=== PATIENT | female | born 1935 | race Caucasian/White ===

== ENCOUNTER → 2016-09-12 | Outpatient (REF) ==
[~2016-09-12] MED LIST: /CLON1TA OR; /WARF25TA OR; ACET65TA OR; ALPR0.5T3 PO; ASPI325T PO; BIMA01SOL OD; COMB0.2S OU; DYAZ37.5 OR; IBUP400T OR; ISTALOL OD; K-TA10TA OR; KLOR1TAB69 PO; LIPI20TA PO; LUMIGAN OD; OMEP10CASR PO; POTA10CA32 PO; POTTASIUM PO; PRIL20CA OR; TRAM50TA2 OR; TRIA37.53 PO; VERA240C PO; VERAPAMIL ER PO; XANA0.25 OR
[2016-09-12 10:15] LABS: CALCIUM LEVEL 8.2 MG/DL (8.8-10.2); CREATININE FOR GFR 1.41 MG/DL (0.55-1.02); GLOMERULAR FILTRATION RATE 38.2 (>32); POTASSIUM SERUM 3.4 MEQ/L (3.5-5.1)
[2016-09-12 10:23] LABS: MEAN CORPUSCULAR HEMOGLOBIN 31.4 pg (27.0-33.0); MEAN CORPUSCULAR HGB CONC 30.8 g/dl (32.0-36.5); RED CELL DISTRIBUTION WIDTH 23.1 % (11.5-14.5); WHITE BLOOD COUNT 8.3 K/mm3 (4.0-10.0)
[2016-09-12 12:10] LABS: INR 1.47
== END ==
LOC: SKLAB3 08:00
PROVIDERS: ATTEND Internal Medicine
DX: N18.9 Chronic kidney disease, unspecified (principal); I10 Essential (primary) hypertension

== ENCOUNTER → 2016-09-15 | Outpatient (REF) ==
[2016-09-15 10:23] LABS: MEAN CORPUSCULAR HEMOGLOBIN 32.3 pg (27.0-33.0); MEAN CORPUSCULAR VOLUME 104.4 fl (80.0-96.0); RED CELL DISTRIBUTION WIDTH 21.6 % (11.5-14.5); WHITE BLOOD COUNT 7.8 K/mm3 (4.0-10.0)
[2016-09-15 10:25] LABS: INR 2.12
[2016-09-15 10:35] LABS: ALBUMIN 2.6 GM/DL (3.2-5.2); ANION GAP 13 MEQ/L (8-16); BLOOD UREA NITROGEN 27 MG/DL (7-18); CALCIUM LEVEL 7.8 MG/DL (8.8-10.2); CARBON DIOXIDE LEVEL 24 MEQ/L (21-32); CHLORIDE LEVEL 105 MEQ/L (98-107); CREATININE FOR GFR 1.19 MG/DL (0.55-1.02); GLOMERULAR FILTRATION RATE 46.5 (>32); GLUCOSE, FASTING 124 MG/DL (83-110); MAGNESIUM LEVEL 1.4 MG/DL (1.8-2.4); PHOSPHORUS LEVEL 3.1 MG/DL (2.5-4.9); POTASSIUM SERUM 3.5 MEQ/L (3.5-5.1); SODIUM LEVEL 142 MEQ/L (136-145); URIC ACID 4.8 MG/DL (2.6-6.0)
[2016-09-15 10:49] LABS: VITAMIN B12 LEVEL > 2000 PG/ML (247-911)
== END ==
LOC: SKLAB3 08:00
PROVIDERS: ATTEND Internal Medicine
DX: I48.91 Unspecified atrial fibrillation (principal)

== ENCOUNTER → 2016-09-19 | Outpatient (REF) ==
[2016-09-19 09:29] LABS: MEAN CORPUSCULAR HEMOGLOBIN 32.2 pg (27.0-33.0); MEAN CORPUSCULAR HGB CONC 30.8 g/dl (32.0-36.5); MEAN CORPUSCULAR VOLUME 104.6 fl (80.0-96.0); RED CELL DISTRIBUTION WIDTH 20.5 % (11.5-14.5)
[2016-09-19 09:52] LABS: INR 3.41
[2016-09-19 09:56] LABS: CALCIUM LEVEL 7.7 MG/DL (8.8-10.2); CREATININE FOR GFR 1.11 MG/DL (0.55-1.02); GLOMERULAR FILTRATION RATE 50.3 (>32); POTASSIUM SERUM 2.5 MEQ/L (3.5-5.1)
[2016-09-19 10:54] LABS: MAGNESIUM LEVEL 1.2 MG/DL (1.8-2.4)
== END ==
LOC: SKLAB3 08:00
PROVIDERS: ATTEND Internal Medicine
DX: N18.9 Chronic kidney disease, unspecified (principal); D64.9 Anemia, unspecified; I48.91 Unspecified atrial fibrillation

== ENCOUNTER → 2016-09-20 | Outpatient (REF) | LOC: SKLAB3 08:00 | PROVIDERS: ATTEND Internal Medicine | DX: E87.6 Hypokalemia (principal) ==

== ENCOUNTER → 2016-09-22 | Outpatient (REF) ==
[2016-09-22 09:23] LABS: CALCIUM LEVEL 8.3 MG/DL (8.8-10.2); CREATININE FOR GFR 1.09 MG/DL (0.55-1.02); GLOMERULAR FILTRATION RATE 51.4 (>32); POTASSIUM SERUM 3.8 MEQ/L (3.5-5.1)
== END ==
LOC: SKLAB3 08:00
PROVIDERS: ATTEND Internal Medicine
DX: E87.6 Hypokalemia (principal)

== ENCOUNTER → 2016-09-26 | Outpatient (REF) ==
[2016-09-26 08:31] LABS: MEAN CORPUSCULAR HEMOGLOBIN 32.2 pg (27.0-33.0); MEAN CORPUSCULAR HGB CONC 31.6 g/dl (32.0-36.5); MEAN CORPUSCULAR VOLUME 101.6 fl (80.0-96.0); WHITE BLOOD COUNT 7.6 K/mm3 (4.0-10.0)
[2016-09-26 09:04] LABS: CALCIUM LEVEL 8.1 MG/DL (8.8-10.2); CREATININE FOR GFR 1.29 MG/DL (0.55-1.02); GLOMERULAR FILTRATION RATE 42.3 (>32); POTASSIUM SERUM 3.4 MEQ/L (3.5-5.1)
[2016-09-26 10:36] LABS: INR 7.85
== END ==
LOC: SKLAB3 08:00
PROVIDERS: ATTEND Internal Medicine
DX: N18.9 Chronic kidney disease, unspecified (principal); E87.6 Hypokalemia; D64.9 Anemia, unspecified

== ENCOUNTER → 2016-09-27 | Outpatient (REF) ==
[2016-09-27 08:30] LABS: MEAN CORPUSCULAR HEMOGLOBIN 32.2 pg (27.0-33.0); MEAN CORPUSCULAR HGB CONC 31.8 g/dl (32.0-36.5); MEAN CORPUSCULAR VOLUME 101.1 fl (80.0-96.0); RED CELL DISTRIBUTION WIDTH 18.8 % (11.5-14.5); WHITE BLOOD COUNT 7.2 K/mm3 (4.0-10.0)
[2016-09-27 10:33] LABS: INR 6.27
== END ==
LOC: SKLAB3 07:00
PROVIDERS: ATTEND Internal Medicine
DX: R79.1 Abnormal coagulation profile (principal)

== ENCOUNTER → 2016-09-29 | Outpatient (REF) ==
[2016-09-29 09:00] LABS: INR 2.34
[2016-09-29 09:05] LABS: MEAN CORPUSCULAR HEMOGLOBIN 32.1 pg (27.0-33.0); MEAN CORPUSCULAR HGB CONC 31.9 g/dl (32.0-36.5); MEAN CORPUSCULAR VOLUME 100.7 fl (80.0-96.0); RED CELL DISTRIBUTION WIDTH 18.2 % (11.5-14.5); WHITE BLOOD COUNT 6.4 K/mm3 (4.0-10.0)
[2016-09-29 09:21] LABS: CALCIUM LEVEL 9.6 MG/DL (8.8-10.2); CREATININE FOR GFR 1.24 MG/DL (0.55-1.02); GLOMERULAR FILTRATION RATE 44.3 (>32); POTASSIUM SERUM 3.8 MEQ/L (3.5-5.1)
== END ==
LOC: SKLAB3 07:00
PROVIDERS: ATTEND Internal Medicine
DX: I48.92 Unspecified atrial flutter (principal)

== ENCOUNTER → 2016-09-30 | Outpatient (CLI) | payer MEDICARE ==
[~2016-09-30] MED LIST changes: +LIDOCAINE 2% MDV 20 ML VIAL As Ordered ONE
--- NOTE | 2016-09-30 12:03 | REPKIM ---
CLINICAL HISTORY: Patient presents with a tunneled right IJ hemodialysis catheter. The referring nephrology service has requested to remove the TDC because it is no longer needed. PROCEDURE PERFORMED: Right IJ Tunneled Dialysis Catheter Removal INTERVENTIONALIST: Dr. Armida Lema CONSENT: The risks, benefits and alternatives to the procedure were explained to the patient and informed written consent was obtained. MEDICATION: Local Lidocaine 2% EBL: 5 mL PROCEDURE/FINDINGS: The patient was brought to the interventional radiology suite and placed in the supine position with head of bed elevated. Time out procedure was performed. The area was prepped and draped in a usual sterile fashion. Local anesthesia was administered subcutaneously to the catheter exit site using 2% Lidocaine. The catheter cuff was bluntly dissected free from the surrounding soft tissues. The catheter was removed, inspected and confirmed to be removed in its entirety. Hemostasis was achieved by manual compression. A sterile dressing was applied. The patient tolerated the procedure well with no immediate complications. No imaging was used. Dr. Lema was present. IMPRESSION: Tunneled dialysis catheter removal as discussed above. cc: Farzad De La Paz MD [facility]
== END | disposition home or self-care (01) ==
LOC: M IRPRO 10:29
PROVIDERS: ATTEND Internal Medicine Nephrology
DX: Z45.2 Encounter for adjustment and management of vascular access device (principal)

== ENCOUNTER → 2016-10-05 | Outpatient (REF) ==
[~2016-10-05] MED LIST changes: -LIDOCAINE 2% MDV 20 ML VIAL As Ordered ONE
[2016-10-05 10:19] LABS: INR 1.77
== END ==
LOC: SKLAB3 07:08
PROVIDERS: ATTEND Internal Medicine
DX: I48.92 Unspecified atrial flutter (principal)

== ENCOUNTER → 2016-10-11 | Outpatient (REF) ==
[2016-10-11 07:46] LABS: MEAN CORPUSCULAR HEMOGLOBIN 31.9 pg (27.0-33.0); MEAN CORPUSCULAR HGB CONC 32.9 g/dl (32.0-36.5); MEAN CORPUSCULAR VOLUME 97.1 fl (80.0-96.0); RED CELL DISTRIBUTION WIDTH 17.1 % (11.5-14.5); WHITE BLOOD COUNT 6.8 K/mm3 (4.0-10.0)
[2016-10-11 07:59] LABS: CALCIUM LEVEL 8.9 MG/DL (8.8-10.2); CREATININE FOR GFR 1.37 MG/DL (0.55-1.02); GLOMERULAR FILTRATION RATE 39.5 (>32); POTASSIUM SERUM 3.9 MEQ/L (3.5-5.1)
[2016-10-11 08:05] LABS: INR 2.11
== END ==
LOC: SKLAB3 07:00
PROVIDERS: ATTEND Internal Medicine
DX: I48.91 Unspecified atrial fibrillation (principal); N18.9 Chronic kidney disease, unspecified

== ENCOUNTER → 2016-10-13 | Outpatient (REF) | payer MEDICARE ==
[2016-10-13 08:46] LABS: INR 2.02
== END ==
LOC: SKLAB3 07:15
PROVIDERS: ATTEND Internal Medicine
DX: I48.91 Unspecified atrial fibrillation (principal)

== ENCOUNTER → 2016-12-08 | Outpatient (REF) ==
[~2016-12-08] MED LIST changes: +AMIO200T PO; +ASPI1TAB PO; +CALC1CAP31 PO; +COLA100C5 PO; +MAGN64TASA PO; +METO1TAB87 PO; +METO25TA PO; +MIRA33504 PO; +POTA10CA PO; +SENN1TAB10 PO; +SPIR25TA2 PO; +TIMO0.5S29 OD; +TORS20TA2 PO; +WARF4TAB52 PO; +XANA0.25 PO
[2016-12-08 08:20] LABS: MEAN CORPUSCULAR HEMOGLOBIN 29.8 pg (27.0-33.0); MEAN CORPUSCULAR HGB CONC 32.5 g/dl (32.0-36.5); MEAN CORPUSCULAR VOLUME 91.8 fl (80.0-96.0); RED CELL DISTRIBUTION WIDTH 16.1 % (11.5-14.5); WHITE BLOOD COUNT 6.8 K/mm3 (4.0-10.0)
[2016-12-08 08:41] LABS: INR 1.34
[2016-12-08 08:45] LABS: CALCIUM LEVEL 8.7 MG/DL (8.8-10.2); CREATININE FOR GFR 1.44 MG/DL (0.55-1.02); GLOMERULAR FILTRATION RATE 37.2 (>32)
== END ==
LOC: SKLAB7 07:00
PROVIDERS: ATTEND Internal Medicine
DX: I48.91 Unspecified atrial fibrillation (principal)

== ENCOUNTER → 2016-12-12 | Outpatient (REF) | payer MEDICARE ==
[2016-12-12 07:54] LABS: INR 2.09
== END ==
LOC: SKLAB7 07:00
PROVIDERS: ATTEND Internal Medicine
DX: I48.91 Unspecified atrial fibrillation (principal)

== ENCOUNTER → 2016-12-15 | Outpatient (REF) ==
[2016-12-15 08:59] LABS: CALCIUM LEVEL 9.1 MG/DL (8.8-10.2); CREATININE FOR GFR 1.7 MG/DL (0.55-1.02); GLOMERULAR FILTRATION RATE 30.7 (>32); MAGNESIUM LEVEL 2.3 MG/DL (1.8-2.4)
== END ==
LOC: SKLAB7 14:13
PROVIDERS: ATTEND Internal Medicine
DX: N18.9 Chronic kidney disease, unspecified (principal); I50.9 Heart failure, unspecified

== ENCOUNTER → 2016-12-19 | Outpatient (REF) ==
[2016-12-19 08:45] LABS: INR 3.79
[2016-12-19 09:14] LABS: CREATININE FOR GFR 1.58 MG/DL (0.55-1.02); GLOMERULAR FILTRATION RATE 33.4 (>32); POTASSIUM SERUM 3.9 MEQ/L (3.5-5.1)
== END ==
LOC: SKLAB7 07:00
PROVIDERS: ATTEND Internal Medicine
DX: I48.91 Unspecified atrial fibrillation (principal); Z51.81 Encounter for therapeutic drug level monitoring; Z79.01 Long term (current) use of anticoagulants

== ENCOUNTER → 2016-12-23 | Outpatient (REF) ==
--- NOTE | 2016-12-23 10:46 | REP ---
Chest two views HISTORY: CHF Comparison: 07/26/2011 An increase in interstitial markings is present in the lungs. Increased density is present in the left lower lobe consistent with atelectasis or infiltrate. Bilateral pleural effusions are present larger on the left than on the right. The cardiac silhouette is enlarged. The pulmonary vasculature is prominent. The bony structure is intact. IMPRESSION: Findings consistent with congestive heart failure. Signed by Cali Uribe MD 12/23/2016 10:38 A
--- NOTE | 2016-12-23 19:30 | ECGEPIP ---
Stationary ECG Study [facility] Test Date: 2016-12-23 Pat Name: RAJENDRA RENDON Department: Room: - Gender: F Utility [employer]: RITCHIE : 1935 Requested By: LEEROY Galvez Order Number: [id number] Reading MD: Miguelangel Medellin Measurements Intervals [place] Rate: 62 P: [place]: 0 QRS: 239 QRSD: 116 T: 144 QT: 461 QTc: 469 Interpretive Statements ATRIAL FIBRILLATION MARKED RIGHT AXIS DEVIATION LOW QRS VOLTAGE IN EXTREMITY LEADS ANTERIOR MYOCARDIAL INFARCTION, OF INDETERMINATE AGE INFERIOR MYOCARDIAL INFARCTION, PROBABLY OLD COMPARED TO THE LAST 2 TRACINGS IN THE SYSTEM, PATIENT WAS IN NORMAL SINUS RHYTHM Electronically Signed On 12-23-2016 19:30:16 EDT by Miguelangel Medellin
== END ==
LOC: SKLAB3 08:51
PROVIDERS: ATTEND Internal Medicine
DX: I48.91 Unspecified atrial fibrillation (principal); I50.9 Heart failure, unspecified

== ENCOUNTER → 2016-12-24 | Outpatient (REF) ==
[2016-12-24 07:59] LABS: CALCIUM LEVEL 7.9 MG/DL (8.8-10.2); CREATININE FOR GFR 1.83 MG/DL (0.55-1.02); GLOMERULAR FILTRATION RATE 28.2 (>32); POTASSIUM SERUM 3.1 MEQ/L (3.5-5.1)
== END ==
LOC: SKLAB3 08:26
PROVIDERS: ATTEND Internal Medicine
DX: I50.9 Heart failure, unspecified (principal)

== ENCOUNTER → 2016-12-26 | Outpatient (REF) ==
[2016-12-26 10:21] LABS: MEAN CORPUSCULAR HEMOGLOBIN 29.9 pg (27.0-33.0); MEAN CORPUSCULAR VOLUME 93.5 fl (80.0-96.0); RED CELL DISTRIBUTION WIDTH 17.5 % (11.5-14.5); WHITE BLOOD COUNT 6.2 K/mm3 (4.0-10.0)
[2016-12-26 10:29] LABS: INR 4.54
[2016-12-26 10:44] LABS: CALCIUM LEVEL 9.2 MG/DL (8.8-10.2); CREATININE FOR GFR 2.01 MG/DL (0.55-1.02); GLOMERULAR FILTRATION RATE 25.3 (>32); POTASSIUM SERUM 3.4 MEQ/L (3.5-5.1)
--- NOTE | 2016-12-26 20:51 | ECGEPIP ---
Stationary ECG Study [facility] Test Date: 2016-12-26 Pat Name: RAJENDRA RENDON Department: Room: - Gender: F [employer] Supervisor: DIXIE : 1935 Requested By: Elvis Strong Order Number: [id number] Reading MD: Atiya Peter Measurements Intervals [place] Rate: 61 P: IL: 0 QRS: 232 QRSD: 118 T: 124 QT: 445 QTc: 449 Interpretive Statements ATRIAL FIBRILLATION MARKED RIGHT AXIS DEVIATION LOW QRS VOLTAGE IN EXTREMITY LEADS INFERIOR MYOCARDIAL INFARCTION, PROBABLY OLD ANTEROSEPTAL MYOCARDIAL INFARCTION, OF INDETERMINATE AGE MINIMAL CHANGE SINCE 12/23/16 Electronically Signed On 12-26-2016 20:51:11 EDT by Atiya Peter
== END ==
LOC: SKLAB3 13:00
PROVIDERS: ATTEND Internal Medicine
DX: I48.91 Unspecified atrial fibrillation (principal)

== ENCOUNTER → 2016-12-29 | Outpatient (REF) ==
[2016-12-29 09:32] LABS: CALCIUM LEVEL 9.6 MG/DL (8.8-10.2); CREATININE FOR GFR 1.81 MG/DL (0.55-1.02); GLOMERULAR FILTRATION RATE 28.6 (>32); POTASSIUM SERUM 3.1 MEQ/L (3.5-5.1)
== END ==
LOC: SKLAB3 07:18
PROVIDERS: ATTEND Internal Medicine
DX: I50.9 Heart failure, unspecified (principal)

== ENCOUNTER → 2017-01-02 | Outpatient (REF) ==
[2017-01-02 08:37] LABS: CALCIUM LEVEL 10.4 MG/DL (8.8-10.2); CREATININE FOR GFR 1.95 MG/DL (0.55-1.02); GLOMERULAR FILTRATION RATE 26.2 (>32); POTASSIUM SERUM 4.8 MEQ/L (3.5-5.1)
[2017-01-02 08:38] LABS: INR 4.19
== END ==
LOC: SKLAB3 12:42
PROVIDERS: ATTEND Internal Medicine
DX: I50.9 Heart failure, unspecified (principal); I48.91 Unspecified atrial fibrillation

== ENCOUNTER → 2017-01-09 | Outpatient (REF) ==
[2017-01-09 09:48] LABS: ALBUMIN 2.3 GM/DL (3.2-5.2); ALBUMIN/GLOBULIN RATIO 0.77 (1.00-1.93); CALCIUM LEVEL 8.8 MG/DL (8.8-10.2); CREATININE FOR GFR 1.79 MG/DL (0.55-1.02); GLOMERULAR FILTRATION RATE 28.9 (>32); TOTAL PROTEIN 5.3 GM/DL (6.4-8.2)
== END ==
LOC: SKLAB3 08:12
PROVIDERS: ATTEND Internal Medicine
DX: I50.9 Heart failure, unspecified (principal)

== ENCOUNTER → 2017-01-12 | Outpatient (REF) | payer MEDICARE ==
--- NOTE | 2017-01-12 14:25 | ECHO ---
DATE OF PROCEDURE: 01/12/2017 REFERRING PHYSICIAN: Dr. Nettie Angel INDICATION: Heart failure, unspecified. HEIGHT: 157 cm. WEIGHT: 55.8 kilograms. 2D MEASUREMENTS: Left atrium: 4.2 cm Ventricular septum: 1.53 cm Posterior wall: 1.53 cm Left ventricle diastole: 3.3 cm Aortic root: 2.0 cm LVOT: 1.0 cm Inferior vena cava: 1.5 cm with less than 50% respiratory variation DOPPLER MEASUREMENTS: Aortic valve velocity: 87.8 cm/s Mild aortic regurgitation. LVOT velocity: 51.1 cm/s LVOT VTI: 7.7 cm Moderate mitral regurgitation. Mitral E velocity 84.0 cm/s Mitral acceleration time 187 ms. Moderate tricuspid regurgitation. Estimated right ventricle systolic pressure: Estimated to be 40 to 45 mmHg assuming a right atrial pressure of 10-15 mmHg Pulmonary artery systolic pressure: 48 mmHg by pulmonary acceleration time method MITRAL ANNULAR TISSUE DOPPLER: E prime septal: 2.6 cm/s E prime lateral: 3.7 cm/s DESCRIPTION: Rhythm appeared to be atrial fibrillation. Image quality was fair. This was a 2D, M-mode, color flow Doppler, and pulse wave Doppler examination and included mitral annular tissue Doppler. CONCLUSIONS: 1. Moderate concentric left ventricle hypertrophy with reduced LV cavity size. Severe global hypokinesis of left ventricle with severe reduction of LV systolic function. Left ventricular ejection fraction of 25% by visual estimate. Visual appearance of low cardiac output state. Unable to adequately assess LV diastolic function in the presence of atrial fibrillation; however, most likely LV diastolic dysfunction with elevated mean left atrial pressure. 2. Mild mitral annular calcification. Moderate mitral regurgitation. No mitral valve prolapse. No flail segments of the mitral leaflets. 3. Mild left atrial dilatation. 4. Moderate aortic valve sclerosis of a three-cuspid aortic valve. Presence of Lambl's excresences. No aortic stenosis. Mild aortic regurgitation. 5. Left pleural effusion. 6. Moderate reduction in right ventricle systolic function with moderate global hypokinesis of right ventricle free wall. Right ventricle appears to be at the upper limits of size. Moderate dilatation by visual assessment. Structurally appearing normal tricuspid leaflets. Moderate tricuspid regurgitation suggestive of moderate elevation of pulmonary systolic pressure and estimated right ventricle systolic pressure. 7. Suggestive of central venous pressure in the range of 10 to 15 mmHg at the time of the study. 8. No pericardial effusion. RECOMMENDATIONS: Recommend further evaluation/management with cardiology referral.
== END ==
LOC: M CARPUL 08:40 → EDSTATUS 13:32
PROVIDERS: ATTEND Internal Medicine
DX: I50.9 Heart failure, unspecified (principal)

== ENCOUNTER → 2017-01-17 | Outpatient (REF) ==
[2017-01-17 09:10] LABS: CALCIUM LEVEL 10.2 MG/DL (8.8-10.2); CREATININE FOR GFR 1.78 MG/DL (0.55-1.02); GLOMERULAR FILTRATION RATE 29.1 (>32); POTASSIUM SERUM 3.2 MEQ/L (3.5-5.1)
[2017-01-17 09:36] LABS: INR 1.32
== END ==
LOC: SKLAB3 07:00
PROVIDERS: ATTEND Internal Medicine
DX: I50.9 Heart failure, unspecified (principal); I48.91 Unspecified atrial fibrillation

== ENCOUNTER → 2017-01-19 | Outpatient (REF) ==
[2017-01-19 09:16] LABS: CREATININE FOR GFR 2.03 MG/DL (0.55-1.02); POTASSIUM SERUM 3.3 MEQ/L (3.5-5.1)
== END ==
LOC: SKLAB3 08:00
PROVIDERS: ATTEND Internal Medicine
DX: I50.9 Heart failure, unspecified (principal)

== ENCOUNTER → 2017-01-23 | Outpatient (REF) ==
[2017-01-23 09:15] LABS: CALCIUM LEVEL 9.2 MG/DL (8.8-10.2); CREATININE FOR GFR 1.88 MG/DL (0.55-1.02); GLOMERULAR FILTRATION RATE 27.3 (>32); POTASSIUM SERUM 3.4 MEQ/L (3.5-5.1)
[2017-01-23 09:17] LABS: INR 1.65
[2017-01-24 08:17] LABS: MAGNESIUM LEVEL 1.7 MG/DL (1.8-2.4)
== END ==
LOC: SKLAB3 08:00
PROVIDERS: ATTEND Internal Medicine
DX: I50.9 Heart failure, unspecified (principal); I48.91 Unspecified atrial fibrillation

== ENCOUNTER → 2017-01-30 | Outpatient (REF) ==
[2017-01-30 09:00] LABS: CALCIUM LEVEL 8.8 MG/DL (8.8-10.2); CREATININE FOR GFR 2.04 MG/DL (0.55-1.02); GLOMERULAR FILTRATION RATE 24.9 (>32); POTASSIUM SERUM 4.5 MEQ/L (3.5-5.1)
[2017-01-30 09:37] LABS: INR 1.49
== END ==
LOC: SKLAB3 12:49
PROVIDERS: ATTEND Internal Medicine
DX: I50.9 Heart failure, unspecified (principal); I48.91 Unspecified atrial fibrillation

== ENCOUNTER → 2017-02-06 | Outpatient (REF) ==
[2017-02-06 08:21] LABS: INR 2.24
[2017-02-06 08:36] LABS: CALCIUM LEVEL 9.3 MG/DL (8.8-10.2); CREATININE FOR GFR 2.05 MG/DL (0.55-1.02); GLOMERULAR FILTRATION RATE 24.7 (>32); POTASSIUM SERUM 4.1 MEQ/L (3.5-5.1)
== END ==
LOC: SKLAB3 07:00
PROVIDERS: ATTEND Internal Medicine
DX: I50.9 Heart failure, unspecified (principal)